=== PATIENT | male | born 1990 | race Caucasian/White ===

== ENCOUNTER 2017-01-18 20:54 | Emergency (ER) | payer SELFPAY ==
[~2017-01-18] VITALS: Ht 185.4 cm; Wt 96.8 kg
[2017-01-18 21:00] VITALS: BP 164/98
[2017-01-18] MEDS ORDERED: MAALOX/HYOSCYAMINE/LIDOCAINE 45 ML BOTTLE PO ONE (23:30)
[2017-01-18] MEDS ORDERED: PROMETHAZINE 25 MG/ML, 1ML IM ONE (23:30)
[2017-01-18] MEDS ORDERED: ONDANSETRON ODT 4 MG PO ONE (23:30)
[2017-01-18] MEDS ORDERED: ONDANSETRON ODT 4 MG ONE (23:31)
[2017-01-18] MEDS ORDERED: MAALOX/HYOSCYAMINE/LIDOCAINE 45 ML BOTTLE ONE (23:31)
[2017-01-18] MEDS ORDERED: PROMETHAZINE 25 MG/ML, 1ML ONE (23:31)
[2017-01-18 23:52] LABS: ICTOTEST NEGATIVE
[2017-01-19 00:07] LABS: HEMOGLOBIN 17.2 g/dL (13.7-18.0)
[2017-01-19 00:20] LABS: BLOOD UREA NITROGEN 12 mg/dL (7-18)
[2017-01-19 00:22] LABS: ASPARTATE AMINO TRANSFERASE 14 U/L (15-37)
== END 2017-01-19 00:19 | disposition left against medical advice (07) ==
LOC: ED 23:23
DX: R10.13 Epigastric pain (principal); R11.0 Nausea; Z87.891 Personal history of nicotine dependence
CPT/HCPCS: 36415; 80053; 81003; 83690; 85025; 86677; 96372; 99284; J2550; Q0162

== ENCOUNTER 2017-07-11 12:11 | Emergency (ER) | payer SELFPAY ==
[~2017-07-11] VITALS: Ht 182.9 cm; Wt 95.9 kg
[2017-07-11 12:21] VITALS: BP 135/86
[2017-07-11] MEDS ORDERED: ONDANSETRON ODT 4 MG PO ONE (12:30)
[2017-07-11 12:54] LABS: HEMATOCRIT 50.8 % (39.2-51.8); HEMOGLOBIN 17.5 g/dL (13.7-18.0); WHITE BLOOD COUNT 4.9 x10^3/uL (3.4-10)
[2017-07-11 13:05] LABS: BLOOD UREA NITROGEN 14 mg/dL (7-18)
[2017-07-11] MEDS ORDERED: ONDANSETRON ODT 4 MG ONE (13:38)
== END 2017-07-11 14:42 | disposition home or self-care (01) ==
LOC: ED 13:35
DX: N41.1 Chronic prostatitis (principal)
CPT/HCPCS: 36415; 80048; 81003; 82040; 85025; 99284; Q0162